=== PATIENT | female | born 1940 | race Caucasian/White ===

== ENCOUNTER 2025-05-16 20:01 | Emergency (ER) | payer MEDICARE ==
[~2025-05-16] VITALS: Ht 162.6 cm; Wt 68.0 kg
[2025-05-16 21:31] LABS: PLATELET COUNT (AUTO) 282 K/uL (150-450); RED BLOOD CELL COUNT(AUTO) 4.28 MIL/uL (4.0-5.2); RED CELL DISTRIBUTION WIDTH 13.9 % (11.5-15.0); WHITE BLOOD COUNT (AUTO) 8.2 K/uL (4.3-11.0)
[2025-05-16 21:46] LABS: CALCIUM, SERUM 9.2 mg/dL (8.5-10.1); CREATININE 1.0 mg/dL (0.6-1.3); SODIUM SERUM 142.0 mmol/L (136-145); UREA NITROGEN, BLOOD 29.0 mg/dL (7-18)
[2025-05-16] MEDS ORDERED: FLUT1DIS INH (22:24)
[2025-05-16] MEDS ORDERED: ATOR40TA PO (22:24)
[2025-05-16] MEDS ORDERED: EZET10TA15 PO (22:24)
[2025-05-16] MEDS ORDERED: MONT10TA22 PO (22:24)
[2025-05-16 22:46] VITALS: BP 138/95; TEMP 98; O2SAT 97
== END 2025-05-16 22:47 | disposition home or self-care (01) ==
LOC: ER 20:06
DX: R42 Dizziness and giddiness (principal); I10 Essential (primary) hypertension; E78.5 Hyperlipidemia, unspecified; J45.909 Unspecified asthma, uncomplicated
CPT/HCPCS: 36415; 70450-TC; 80048-TC; 85025-TC